=== PATIENT | female | born 2000 | race Two or more races ===

== ENCOUNTER 2021-01-12 16:28 | Emergency (ER) | payer SELFPAY ==
[~2021-01-12] VITALS: Ht 165.1 cm; Wt 68.0 kg
[2021-01-12 16:36] VITALS: BP 128/72
[2021-01-12] MEDS ORDERED: LORA-249 MT (17:55)
== END 2021-01-12 18:26 | disposition home or self-care (01) ==
LOC: ER 16:28
DX: F41.0 Panic disorder [episodic paroxysmal anxiety] (principal)
CPT/HCPCS: 99283